=== PATIENT | male | born 1985 | race Caucasian/White ===

== ENCOUNTER 2021-03-18 20:35 | Emergency (ER) | payer OTHER ==
[2021-03-18 21:08] LABS: BASOPHIL 0.5 % (0-2); EOSINOPHIL 1.2 % (0-5); HCT 46.9 % (42.0-52.0); HGB 16.2 g/dl (13.2-18.0); LYMPHOCYTE 13.6 % (15-48); MCH 31.7 pg (25.0-31.0); MCHC 34.5 g/dL (32.0-36.0); MCV 91.8 fL (78.0-100.0); MONOCYTE 7.8 % (0-12); MPV 10.2 fL (6.0-9.5); NEUTROPHIL 76.5 % (41-80); NRBC 0; PLT 287 K/uL (150-400); RBC 5.11 M/uL (4.70-6.00); RDW 12.5 % (11.5-14.0); WBC 16.2 K/uL (4.0-10.5)
[2021-03-18 21:19] LABS: BUN/CREAT RATIO (CALC) 20.3 RATIO; CREATININE 0.79 mg/dL (0.67-1.17); URIC ACID 5.8 mg/dL (3.5-7.2)
[2021-03-19] MEDS ORDERED: BACTRIM DS TAB1 EACH PO (04:01)
[2021-03-19] MEDS ORDERED: VIBRAMYCIN100 MG PO (04:01)
== END 2021-03-19 04:15 | disposition home or self-care (01) ==
LOC: FER 20:35
PROVIDERS: Nurse Practitioner Family
DX: L03.114 Cellulitis of left upper limb (principal); Z20.822 Contact with and (suspected) exposure to COVID-19
CPT/HCPCS: 36415; 71045; 73080; 73200; 80048; 83605; 84484; 84550; 85025; 85379; 87040; 93005; J2543; J3370; J7030; J7050; U0002

== ENCOUNTER 2021-03-20 17:40 | Emergency (ER) | payer OTHER ==
[~2021-03-20 17:40] MED LIST: BACTRIM DS TAB1 EACH PO; VIBRAMYCIN100 MG PO
[2021-03-20 21:26] LABS: BASOPHIL 0.5 % (0-2); EOSINOPHIL 1.6 % (0-5); HCT 47.4 % (42.0-52.0); HGB 16.2 g/dl (13.2-18.0); LYMPHOCYTE 20.5 % (15-48); MCH 31.4 pg (25.0-31.0); MCHC 34.2 g/dL (32.0-36.0); MCV 91.9 fL (78.0-100.0); MONOCYTE 9.8 % (0-12); MPV 10.4 fL (6.0-9.5); NEUTROPHIL 67.3 % (41-80); NRBC 0; PLT 304 K/uL (150-400); RBC 5.16 M/uL (4.70-6.00); RDW 12.6 % (11.5-14.0); WBC 14.6 K/uL (4.0-10.5)
[2021-03-20 21:38] LABS: BUN/CREAT RATIO (CALC) 12.9 RATIO; CREATININE 0.85 mg/dL (0.67-1.17)
[2021-03-20 21:41] LABS: LACTIC ACID 1.4 mmol/L (0.4-1.9)
== END 2021-03-21 02:50 | disposition home or self-care (01) ==
LOC: FER 17:40
PROVIDERS: Nurse Practitioner Family
DX: L03.114 Cellulitis of left upper limb (principal); G80.9 Cerebral palsy, unspecified
CPT/HCPCS: 36415; 73201; 80048; 83605; 85025; 87040; J3370; J7030; J7050

== ENCOUNTER 2021-06-06 12:51 | Emergency (ER) | payer OTHER ==
[~2021-06-06 12:51] MED LIST changes: +LEVETIRACETAM500 MG PO
[2021-06-06] MEDS ORDERED: ONDANSETRON ODT4 MG PO (17:26)
== END 2021-06-06 17:50 | disposition home or self-care (01) ==
LOC: FER 12:51
DX: G89.29 Other chronic pain (principal); M25.561 Pain in right knee

== ENCOUNTER → 2021-06-26 | Day surgery (SDC) | payer OTHER ==
[~2021-06-26] VITALS: Ht 157.5 cm; Wt 90.9 kg
[~2021-06-26] MED LIST changes: +ONDANSETRON ODT4 MG PO
[2021-06-26 06:55] LABS: HCT 45.8 % (42.0-52.0); HGB 15.9 g/dl (13.2-18.0); MCH 31.6 pg (25.0-31.0); MCHC 34.7 g/dL (32.0-36.0); MCV 91.1 fL (78.0-100.0); MPV 9.4 fL (6.0-9.5); RBC 5.03 M/uL (4.70-6.00); RDW 12.3 % (11.5-14.0); WBC 8.2 K/uL (4.0-10.5)
[2021-06-26 07:21] LABS: BILIRUBIN - TOTAL 0.5 mg/dL (0.2-1.0); BUN/CREAT RATIO (CALC) 18.8 RATIO; CREATININE 0.69 mg/dL (0.67-1.17); GLOBULIN (CALCULATION) 3.4 g/dL; POTASSIUM 3.9 mmol/L (3.5-5.1); TOTAL PROTEIN 7.4 g/dL (6.4-8.2)
== END | disposition home or self-care (01) ==
LOC: FAS 06:08
PROVIDERS: Orthopaedic Surgery
DX: M79.4 Hypertrophy of (infrapatellar) fat pad (principal); M25.861 Other specified joint disorders, right knee; M17.11 Unilateral primary osteoarthritis, right knee
CPT/HCPCS: 36415; 80053; J2250; J2405; J2704; J3010; J7120

== ENCOUNTER 2021-07-09 03:31 | Inpatient (IN) | payer OTHER ==
[~2021-07-09] VITALS: Ht 158 cm; Wt 84.0 kg
[2021-07-09 05:41] LABS: BASOPHIL 0.4 % (0-2); EOSINOPHIL 0.5 % (0-5); HCT 46.1 % (42.0-52.0); HGB 15.9 g/dl (13.2-18.0); LYMPHOCYTE 8.4 % (15-48); MCH 31.5 pg (25.0-31.0); MCHC 34.5 g/dL (32.0-36.0); MCV 91.3 fL (78.0-100.0); MONOCYTE 8.4 % (0-12); MPV 9.9 fL (6.0-9.5); NEUTROPHIL 81.9 % (41-80); NRBC 0; PLT 268 K/uL (150-400); RBC 5.05 M/uL (4.70-6.00); RDW 12.6 % (11.5-14.0); WBC 17.4 K/uL (4.0-10.5)
[2021-07-09 06:13] LABS: C-REACTIVE PROTEIN 1.9 mg/dL (<=0.90); CREATININE 0.62 mg/dL (0.67-1.17); MAGNESIUM 2.2 mg/dL (1.8-2.4); PHOSPHORUS 3.2 mg/dL (2.6-4.7); POTASSIUM 4.3 mmol/L (3.5-5.1)
[2021-07-09 11:24] LABS: RBC (FLUID) 35000 RBC/uL
[2021-07-09 11:59] LABS: CLARITY (FLUID) CLOUDY; COLOR (FLUID) AMBER; WBC (FLUID) 72320 WBC/uL
--- NOTE | 2021-07-09 19:19 | NUR ---
UNSUCCESSFUL PICC PLACEMENT ATTEMPT. SITE OF ATTEMPT WITHOUT IMMEDIATE SIGNS OF ISSUES. NO BLEEDING NOTED AFTER BANDAGE APPLIED. PATIENT TOLERATED ATTEMPT WELL. PRIMARY RN MADE AWARE.
--- NOTE | 2021-07-10 04:51 | NUR ---
WARM WIPES GIVEN TO PATIENT, NURSE WASHED BILATERAL LOWER EXT. CHAR FILTER OPERATOR GAVE PARTICAL BATH THI AMD, PATIENT INSTRUSTED TO SLANSE SELF WITH WIPES NEEDED PREP FOR SURGERY. EDUCATED THAT SURGERICAL WOULD CLEANSE AREA AGAIN PRIOR TO SURGERY, STATES UNDERSTANDING.
[2021-07-10 07:54] LABS: BASOPHIL 0.4 % (0-2); EOSINOPHIL 0.2 % (0-5); HCT 47.3 % (42.0-52.0); LYMPHOCYTE 9.8 % (15-48); MCH 31.2 pg (25.0-31.0); MCHC 33.8 g/dL (32.0-36.0); MCV 92.2 fL (78.0-100.0); MONOCYTE 13.5 % (0-12); MPV 9.8 fL (6.0-9.5); NEUTROPHIL 75.6 % (41-80); NRBC 0; PLT 227 K/uL (150-400); RBC 5.13 M/uL (4.70-6.00); RDW 12.6 % (11.5-14.0); WBC 12.3 K/uL (4.0-10.5)
[2021-07-10 07:55] LABS: BUN 8 mg/dL (7-18); BUN/CREAT RATIO (CALC) 12.7 RATIO; C-REACTIVE PROTEIN >18.00 mg/dL (<=0.90); CHLORIDE 100 mmol/L (98-107); CO2 (BICARBONATE) 24 mmol/L (21-32); CREATININE 0.63 mg/dL (0.67-1.17); GLUCOSE 107 mg/dL (74-106); MAGNESIUM 2.1 mg/dL (1.8-2.4); POTASSIUM 3.8 mmol/L (3.5-5.1)
--- NOTE | 2021-07-10 13:49 | NUR ---
PICC LINE CONSULT PLACED YESTERDAY BY DR. PERAZA. PICC ATTEMPTED YESTERDAY BY OTHER RN, AND NOT SUCCESSFUL. I WENT IN TO PATIENTS ROOM TODAY AND EXPALINED PROCEDURE TO THE PATIENT, OBTAINED CONSENT AND VISUALIZED RIGHT UPPER ARM BRACHIAL VEIN VIA ULTRASOUND. I PREPPED THE SITE USING STERILE TECHNIQUE, AND THEN PREPARED FOR PICC LINE INSERTION. PREVIOUS MEASUREMENT 36CM FROM ULTRASOUND INSERTION SITE MARKING. PATIENT DRAPED WITH STERILE DRAPE, I DONNED MY STERILE GOWN AND GLOVES. USING ULTRASOUND VISUALIZATION, I NUMBED THE INSERTION SITE WITH 1.5ML OF SQ LIDOCAINE. USING A 21 GAUGE NEEDLE, AND ULTRASOUND VISUALIZATION, I ACCESSED THE RIGHT BRACHIAL VEIN, BLOOD RETURN NOTED, WIRE INSERTED THROUGH 21 GAUGE NEELDE W/O DIFFICULTY. ONCE INSERTED TO MARKING ON WIRE, NEEDLE RETRACTED AND TOURNIQUET RELEASED. INTRODUCER THREADED OVER THE WIRE, AND ADVANCED INTO THE SKIN, NO DIFFICULTY, GUIDE WIRE REMOVED AND STERILE CAP PLACED ON THE END OF THE INTRODUCER. PICC LINE TRIMMED TO PREVIOUS MEASUREMENT OF 36CM. SHERLOCK PLACED ON PATIENT CHEST PRIOR TO PROCEDURE. INTERNAL INTRODUCER REMOVED AND PICC LINE GUIDED IN THROUGH THE EXTERNAL INTRODUCER, I VISUALIZED ON THE SITE RITE SCREEN THE PICC LINE DROP DOWN TOWARDS THE SVC, BLOOD RETURN NOTED AND FLUSHED WITH EASE, EXTERNAL INTRODUCER REMOVED, PICC RE-INSERTED TO 2CM OUT AT INSERTION SITE, BLOOD RETURN PRESENT AND FLUSHED AGAIN WITH NS WITH NO DIFFICULTY. PICC LINE SECURED WITH STERILE CHG DRESSING AND CALLED FOR STAT CXR TO CONFIRM PLACEMENT. CXR CONFIRMED PICC IN TIP OF SVC, INTERNAL WIRE REMOVED AND LUMEN PLACED ON END OF PICC. FLUSHED WITH 10ML NORMAL SALINE AND REPORT GIVEN TO AL COOPER RN.
--- NOTE | 2021-07-10 16:41 | NUR ---
PER HEIKE AT [facility]. THE COST OF THE IV ABX AND SUPPLIES IS $256.80 A WEEK. SPOKE WITH PT AND SPOUSE. HE CANNOT AFFORD THE COST OF THE ABX AND IS WILLING TO COME TO THE HOSPITAL FOR OUTPT INFUSION. MELO MELENDEZ, WAS PRESENT FOR THIS CONVERSATION WITH PT. SHE IS AWARE TO SET UP THE OUTPT INFUSION. ADVISED DR. DIAZ OF PT PREFERENCE FOR OUTPT INFUSION.
[2021-07-10] MEDS ORDERED: ASPIRIN325 MG PO (16:58)
--- NOTE | 2021-07-10 20:26 | NUR ---
2001 PATIENT DISCHARGED, TRANSPORTED TO [facility] VIA W/C PER [employer]. GENERAL CONDITION AT TIME OF DISCHAGE AFEBRILE AND STABLE. DISCHARGE INSTRUCTION PACKET WITH PATIENT, AT HIS SIDE.
== END 2021-07-10 20:02 | disposition home or self-care (01) | DRG 487 ==
LOC: FER 03:31 → FMS 14:51
PROVIDERS: Emergency Medicine; Orthopaedic Surgery; ADMIT Internal Medicine
PROC: 0S9C3ZZ Drainage of Right Knee Joint, Percutaneous Approach (ICD-10-PCS; 2021-07-10)
PROC: 3E1U48Z Irrigation of Joints using Irrigating Substance, Percutaneous Endoscopic Approach (ICD-10-PCS; 2021-07-10)
PROC: 02HV33Z Insertion of Infusion Device into Superior Vena Cava, Percutaneous Approach (ICD-10-PCS; 2021-07-10)
PROC: 0SBC4ZZ Excision of Right Knee Joint, Percutaneous Endoscopic Approach (ICD-10-PCS; principal; 2021-07-10 15:30)
DX: M00.061 Staphylococcal arthritis, right knee (principal); Z20.822 Contact with and (suspected) exposure to COVID-19; G80.9 Cerebral palsy, unspecified; B95.62 Methicillin resistant Staphylococcus aureus infection as the cause of diseases classified elsewhere; G40.909 Epilepsy, unspecified, not intractable, without status epilepticus; F41.9 Anxiety disorder, unspecified; Z86.14 Personal history of Methicillin resistant Staphylococcus aureus infection
CPT/HCPCS: 36415; 71045; 73560; 80048; 82945; 83605; 83735; 83880; 84100; 84443; 85025; 86140; 87040; 87070; 87077; 87186; 87205; 89051; 89060; 93971; 94010; J0696; J1170; J1642; J2250; J2405; J2704; J3010; J3370; J7040; J7050; J7120; U0002

== ENCOUNTER 2021-07-11 15:19 | Emergency (ER) | payer OTHER ==
[~2021-07-11] VITALS: Ht 157.5 cm; Wt 83.9 kg
[~2021-07-11 15:19] MED LIST changes: +ASPIRIN325 MG PO
[2021-07-11 16:27] LABS: BASOPHIL 0.4 % (0-2); BILIRUBIN NEGATIVE (NEGATIVE); BLOOD NEGATIVE Ery/uL (NEGATIVE); CLARITY CLEAR (CLEAR); COLOR YELLOW (YELLOW); EOSINOPHIL 1.6 % (0-5); GLUCOSE (U) NORMAL (NORMAL); HCT 43.8 % (42.0-52.0); HGB 14.7 g/dl (13.2-18.0); LEUKOCYTES NEGATIVE Leu/uL (NEGATIVE); LYMPHOCYTE 15.4 % (15-48); MCH 31.1 pg (25.0-31.0); MCHC 33.6 g/dL (32.0-36.0); MCV 92.8 fL (78.0-100.0); MONOCYTE 14.2 % (0-12); MPV 10.1 fL (6.0-9.5); NEUTROPHIL 68.1 % (41-80); NITRITE NEGATIVE (NEGATIVE); NRBC 0; PLT 218 K/uL (150-400); PROTEIN NEGATIVE (NEGATIVE); RBC 4.72 M/uL (4.70-6.00); RDW 12.5 % (11.5-14.0); UROBILINOGEN 0.2 mg/dL (0.2-1.0); WBC 10.3 K/uL (4.0-10.5)
[2021-07-11 17:13] LABS: ALBUMIN 3.6 g/dL (3.4-5.0); BILIRUBIN - TOTAL 0.5 mg/dL (0.2-1.0); BUN/CREAT RATIO (CALC) 16.2 RATIO; CREATININE 0.68 mg/dL (0.67-1.17); GLOBULIN (CALCULATION) 3.6 g/dL; POTASSIUM 3.9 mmol/L (3.5-5.1); TOTAL PROTEIN 7.2 g/dL (6.4-8.2)
[2021-07-11 22:04] LABS: CORONAVIRUS 2019 SARS-COV-2 NEGATIVE (NEGATIVE); INFLUENZA A NAA NEGATIVE (NEGATIVE)
--- NOTE | 2021-07-12 10:26 | NUR ---
PER THERAPY PT/OT EVAL PATIENT MAY GO TO OUTPT THERAPY. WILL NEED A RW AND 09/04. DR. STEELE ORDERED RW AND 09/04 AND OUTPT THERAPY. FIRST APPT. AT THERAPY IS 07/16/21 @ 12:30 P.M. FAXED ORDER TO [facility] FOR RW AND 09/04 FAXED ORDER FOR PT TO [facility]. PT SIGNED CHOICE FORM AND COPY GIVEN.
== END 2021-07-12 14:12 | disposition home or self-care (01) ==
LOC: FER 15:19
PROVIDERS: Emergency Medicine; Emergency Medicine Emergency Medical Services
DX: R53.1 Weakness (principal); Z20.822 Contact with and (suspected) exposure to COVID-19
CPT/HCPCS: 36415; 70450; 70551; 71045; 80053; 80202; 81003; 82550; 85025; 93005; 97162; 97166; 97530-GP; 97535; J3370; J7030; J7040; J7050; Q9967; U0002

== ENCOUNTER 2021-08-06 08:10 | Emergency (ER) | payer OTHER ==
[2021-08-06 12:53] LABS: BASOPHIL 0.6 % (0-2); HCT 45.3 % (42.0-52.0); HGB 15.2 g/dl (13.2-18.0); LYMPHOCYTE 19.4 % (15-48); MCH 30.9 pg (25.0-31.0); MCHC 33.6 g/dL (32.0-36.0); MCV 92.1 fL (78.0-100.0); MONOCYTE 10.7 % (0-12); MPV 9.7 fL (6.0-9.5); NRBC 0; PLT 328 K/uL (150-400); RBC 4.92 M/uL (4.70-6.00); RDW 11.9 % (11.5-14.0); WBC 12.7 K/uL (4.0-10.5)
[2021-08-06 13:11] LABS: CREATININE 0.63 mg/dL (0.67-1.17); POTASSIUM 4.1 mmol/L (3.5-5.1)
== END 2021-08-06 16:31 | disposition home or self-care (01) ==
LOC: FER 08:10
PROVIDERS: Nurse Practitioner Family
DX: M25.461 Effusion, right knee (principal); I10 Essential (primary) hypertension
CPT/HCPCS: 36415; 73560; 80048; 85025; 93971; J0878

== ENCOUNTER 2021-09-03 13:21 | Emergency (ER) | payer OTHER ==
[2021-09-03 14:18] LABS: BASOPHIL 0.6 % (0-2); EOSINOPHIL 3.1 % (0-5); LYMPHOCYTE 14.1 % (15-48); MCH 30.5 pg (25.0-31.0); MCHC 34.1 g/dL (32.0-36.0); MCV 89.6 fL (78.0-100.0); MONOCYTE 8.5 % (0-12); MPV 9.9 fL (6.0-9.5); NEUTROPHIL 73.4 % (41-80); NRBC 0; PLT 282 K/uL (150-400); RBC 4.91 M/uL (4.70-6.00); RDW 12.3 % (11.5-14.0); WBC 12.9 K/uL (4.0-10.5)
[2021-09-03 14:43] LABS: ALBUMIN 3.8 g/dL (3.4-5.0); BILIRUBIN - TOTAL 0.5 mg/dL (0.2-1.0); BUN/CREAT RATIO (CALC) 17.9 RATIO; CREATININE 0.78 mg/dL (0.67-1.17); GLOBULIN (CALCULATION) 3.8 g/dL; POTASSIUM 3.8 mmol/L (3.5-5.1); TOTAL PROTEIN 7.6 g/dL (6.4-8.2)
[2021-09-03 14:57] LABS: CKMB 0.7 ng/mL (0.0-3.6)
[2021-09-03 15:23] LABS: BILIRUBIN NEGATIVE (NEGATIVE); BLOOD NEGATIVE Ery/uL (NEGATIVE); CLARITY CLEAR (CLEAR); COLOR YELLOW (YELLOW); GLUCOSE (U) NORMAL (NORMAL); LEUKOCYTES NEGATIVE Leu/uL (NEGATIVE); NITRITE NEGATIVE (NEGATIVE); PROTEIN NEGATIVE (NEGATIVE); SPECIFIC GRAVITY 1.025 (1.001-1.030); UROBILINOGEN 0.2 mg/dL (0.2-1.0)
[2021-09-03] MEDS ORDERED: PEPCID AC20 MG PO (16:13)
== END 2021-09-03 17:08 | disposition home or self-care (01) ==
LOC: FER 13:21
PROVIDERS: Physician Assistant
DX: K29.70 Gastritis, unspecified, without bleeding (principal); R00.0 Tachycardia, unspecified; I10 Essential (primary) hypertension; Z79.82 Long term (current) use of aspirin; Z79.899 Other long term (current) drug therapy; Z20.822 Contact with and (suspected) exposure to COVID-19
CPT/HCPCS: 36415; 71045; 71275; 80053; 81003; 82553; 83690; 83880; 84484; 85025; 85379; 93005; J2270; J2405; Q9967; U0002